=== PATIENT | female | born 1980 | race Asian ===

== ENCOUNTER → 2024-05-11 08:55 | Outpatient (CLI) | payer OTHER, SELFPAY ==
--- NOTE | 2024-05-11 09:00 | DI.US.S_ITS ---
LIMITED ULTRASOUND OF LEFT BREAST: 05/11/2024 CLINICAL: Patient returns today to evaluate a focal asymmetry in the left breast. Comparison is made to exam dated: 03/23/2024 mammogram - outside facility. Real-time ultrasound of the left breast 6 o'clock region was performed. Duran scale images of the real-time examination were reviewed. There is a benign 1 cm x 0.7 cm x 0.8 cm simple cyst in the left breast at 6 o'clock posterior depth 2 cm from the nipple. This correlates with mammography findings. IMPRESSION: BENIGN Left breast simple cyst at 6 o'clock position is benign. No mammographic or sonographic evidence of malignancy. A 1 year screening mammogram is recommended. Findings and recommendations were conveyed to the patient during today's evaluation. This exam was interpreted at Station ID: [id number]. Electronically Signed By: Lakshmi Shannon M.D., Ph.D. eb/:05/12/2024 00:44:43 letter sent: Normal Exam ACR BI-RADS Category 2: Benign
--- NOTE | 2024-05-11 09:00 | DI.MG.S_ITS ---
UNILATERAL LEFT DIGITAL DIAGNOSTIC MAMMOGRAM 3D/2D WITH ADDITIONAL VIEWS: 05/11/2024 CLINICAL: Additional evaluation requested from prior study. Comparison is made to exam dated: 03/23/2024 mammogram - outside facility. The breasts are heterogeneously dense, which may obscure small masses (category c / 51-75% glandular tissue). There is a 1 cm oval mass with a circumscribed margin in the left breast at 6 o'clock anterior depth. This is seen in additional views. No other significant masses or calcifications are seen in the breast. IMPRESSION: INCOMPLETE: NEED ADDITIONAL IMAGING EVALUATION The 1 cm oval mass in the left breast is indeterminate. An ultrasound is recommended for further evaluation and is scheduled to immediately follow this examination. Based on the Tyrer Cuzick model (a risk assessment model) the patient's lifetime risk is 15.2% and her 10 year risk is 2.3%. According to the ACR, ACS, and NCCN guidelines, an annual breast MRI exam along with mammogram is recommended if the patient's lifetime risk is 20% or greater. This exam was interpreted at Station ID: [id number]. NOTE: For mammograms, a report in lay terms will be sent to the patient. Approximately 15% of breast malignancies will not be visualized mammographically. In the management of a palpable breast mass, a negative mammogram must not discourage biopsy of a clinically suspicious lesion. Electronically Signed By: Lakshmi Shannon M.D., Ph.D. eb/:05/12/2024 00:43:28 letter sent: Additional Imaging Needed ACR BI-RADS Category 0: Incomplete: Need Additional Imaging Evaluation
== END ==
PROVIDERS: Referring Provider Physician Assistant; Visit Provider Physician Assistant
DX: R92.8 Other abnormal and inconclusive findings on diagnostic imaging of breast (principal); R92.333 Mammographic heterogeneous density, bilateral breasts; N60.02 Solitary cyst of left breast
CPT/HCPCS: 76642; 77065; G0279